=== PATIENT | male | born 1965 | race Caucasian/White ===

== ENCOUNTER 2016-04-12 06:58 | Outpatient (CLI) | payer MEDICAID ==
[~2016-04-12] VITALS: Ht 170.2 cm; Wt 66.7 kg
[2016-04-12] VITALS (15 sets, daily range): BP systolic 86–117; BP diastolic 48–80
[2016-04-12] MEDS ORDERED: QUET200T PO (07:19)
[2016-04-12] MEDS ORDERED: LOVA40TA2 PO (07:19)
[2016-04-12] MEDS ORDERED: FENO135C2 PO (07:19)
[2016-04-12] MEDS ORDERED: TAMS0.4C2 PO (07:19)
[2016-04-12] MEDS ORDERED: ONDA-36 PO (07:19)
[2016-04-12] MEDS ORDERED: DOCU-153 PO (07:19)
[2016-04-12] MEDS ORDERED: LEVO50TA5 PO (07:19)
[2016-04-12] MEDS ORDERED: RANI150C PO (07:19)
[2016-04-12] MEDS ORDERED: HYDR50CA2 PO (07:19)
[2016-04-12 07:22] LABS: BASO # 0.1 x10^3/uL (0.0-0.2); BASO % 1 % (0-3); EOS % 7 % (0-3); HEMATOCRIT 41.5 % (39.0-53.0); HEMOGLOBIN 13.4 g/dL (13.0-17.5); LYMPH # 1.8 x10^3/uL (1.0-4.8); LYMPH % 22 % (24-48); MEAN CORPUSCULAR HEMOGLOBIN 26 pg (25-35); MEAN CORPUSCULAR HGB CONC 32 g/dL (31-37); MEAN CORPUSCULAR VOLUME 82 fL (79-100); MONO % 14 % (0-9); NEUT % 57 % (31-73); PLATELET COUNT 284 x10^3/uL (140-400); RED BLOOD COUNT 5.09 x10^6/uL (4.30-5.70); RED CELL DISTRIBUTION WIDTH 15.4 % (11.5-14.5); WHITE BLOOD COUNT 8.3 x10^3/uL (4.0-11.0)
[2016-04-12 07:39] LABS: INR 1.2 (0.8-1.1); PROTHROMBIN TIME PATIENT 14.3 SEC (11.7-14.0)
[2016-04-12] MEDS ORDERED: OXYC20TA34 PO (07:43)
[2016-04-12] MEDS ORDERED: OXYC-250 PO (07:43)
[2016-04-12] MEDS ORDERED: ALBU2.5V13 NEB (07:43)
[2016-04-12] MEDS ORDERED: INSU100V8 SQ (07:43)
[2016-04-12] MEDS ORDERED: LIDOCAINE 1% / SOD BICARB 8.4% 20 ML VIAL. IJ ONE ×2 (08:11→08:45)
[2016-04-12] MEDS ORDERED: MIDAZOLAM HCL 2 MG/2 ML VIAL. ONE (08:21)
[2016-04-12] MEDS ORDERED: FENTANYL PF 100 MCG/2 ML VIAL. ONE (08:21)
[2016-04-12] MEDS ORDERED: FENTANYL PF 100 MCG/2 ML VIAL. IV ONE (08:45)
[2016-04-12] MEDS ORDERED: MIDAZOLAM HCL 2 MG/2 ML VIAL. IV ONE (08:45)
--- NOTE | 2016-04-12 09:13 | PDOC ---
MODERATE SEDATION ASSESSMENT RISKS/ALTERNATIVES Risks/Alternatives Risks and alternatives of this type of sedation and procedure discussed with: RISK/ALTERNATIVES: Patient H & P ON CHART H & P H & P on chart and reviewed for co-morbid conditions and appropriate labs. H&P ON CHART: Yes STATUS PREG STATUS ASSESSED: N/A MEDS/ALLERGIES REVIEWED Meds/Allergies Reviewed Medications and Allergies including time and route of recently administered narcotics and sedatives. MEDS/ALLERGIES REVIEWED: Yes ASA RATING ASA RATING: II AIRWAY ASSESSMENT Airway Assessment Airway patency, oral function limitations, presence of caps, crowns, dentures, partials, and ability to extend neck assessed. AIRWAY ASSESSMENT: Yes MALLAMPATI SCORE MALLAMPATI SCORE: II PRE-SEDATION ASSESSMENT PRE-SEDATION ASSESSMENT: Yes MONSTER ALEX MD Apr 12, 2016 09:13
--- NOTE | 2016-04-12 09:14 | PDOC1 ---
History and Physical Date of Procedure Date of Admission 04/12/16 Procedure Procedure Image guided right thoracentesis Indication Indication 50 YO male with massive, symptomatic right thoracentesis Past Medical History Past Medical History See Nursing pre procedure PMH Past Surgical History Past Surgical History See Nursing Pre procedure PSH Current Medications Current Medications Current Medications Lidocaine/Sodium Bicarbonate (Buffered Lidocaine 1%) 20 ml STK-MED ONCE IJ ; Start 04/12/16 at 08:11; Stop 04/12/16 at 08:12; Status DC Midazolam HCl (Versed) 2 mg STK-MED ONCE .ROUTE ; Start 04/12/16 at 08:21; Stop 04/12/16 at 08:22; Status DC Fentanyl Citrate (Fentanyl 2ml Vial) 100 mcg STK-MED ONCE .ROUTE ; Start at 08:21; Stop 04/12/16 at 08:22; Status DC Lidocaine/Sodium Bicarbonate (Buffered Lidocaine 1%) 20 ml 1X ONCE IJ Last administered on 04/12/16 08:48; Start 04/12/16 at 08:45; Stop 04/12/16 at 08:46 ; Status DC Midazolam HCl (Versed) 2 mg 1X ONCE IV Last administered on 04/12/16 08:49; Start 04/12/16 at 08:45; Stop 04/12/16 at 08:46; Status DC Fentanyl Citrate (Fentanyl 2ml Vial) 100 mcg 1X ONCE IV Last administered on 08:49; Start 04/12/16 at 08:45; Stop 04/12/16 at 08:46; Status DC Active Scripts Active Reported Albuterol Sulfate Conc Neb Soln (Albuterol Sulfate) 2.5 Mg/0.5 Ml Vial.neb 2.5 Mg NEB Lantus (Insulin Glargine,Hum.rec.anlog) 100 Unit/1 Ml Vial 45 Unit SQ HS Oxycontin (Oxycodone HCl) 20 Mg Tab.er.12h 20 Mg PO BID Percocet 10-325 Mg Tablet (Oxycodone/Acetaminophen) 1 Each Tablet 1 Tab PO PRN Q6HRS PRN Fenofibric Acid (Fenofibric Acid (Choline)) 135 Mg Capsule.dr 135 Mg PO DAILY Ranitidine Hcl 150 Mg Capsule 150 Mg PO BID Tamsulosin Hcl 0.4 Mg Cap.er.24h 0.4 Mg PO DAILY Lovastatin 40 Mg Tablet 40 Mg PO HS Levothyroxine Sodium 50 Mcg Tablet 50 Mcg PO DAILYAC Hydroxyzine Pamoate 50 Mg Capsule 50 Mg PO Q6HRS Ondansetron Hcl 8 Mg Tablet 8 Mg PO DAILY PRN Quetiapine Fumarate 200 Mg Tablet 200 Mg PO BID Dok (Docusate Sodium) 100 Mg Capsule 100 Mg PO DAILY Allergies Allergies: Coded Allergies: No Known Drug Allergies (Unverified , 04/12/16) Physical Exam Vital Signs Vital Signs Date Time Temp Pulse Resp B/P Pulse Ox O2 Delivery O2 Flow Rate FiO2 04/12/16 08:59 87 12 97 Nasal Cannula 2.0 04/12/16 07:39 98.3 117/71 98.3 Lungs: Other (diminished right breath sounds) Heart: Regular rate Psych/Mental Status: Mental status NL Assessment Assessment Large, symptomatic right pleural effusion Problems: Plan Plan Image guided Dx/Tx thoracentesis, as requested by Pulmonary MONSTER ALEX MD Apr 12, 2016 09:14
--- NOTE | 2016-04-12 09:24 | PDOC ---
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 No apparent complication. No immediate Ptx. Disposition Disposition Discharge from [facility] post recovery, if no Ptx or other problem. 90 minute post thora insp/exp CXR requested. F/u with referring MD. Full report to follow. MONSTER ALEX MD Apr 12, 2016 09:24
--- NOTE | 2016-04-12 11:01 | RAD ---
Exam performed: Single view chest in inspiration and expiration Date of service: 04/12/16. Comparison: None available Indication: 1.5 hours post thoracentesis Findings: Small residual right pleural effusion is seen post thoracentesis. Right Basilar atelectasis noted. No pneumothorax is identified. The left lung is clear. Impression: No definite pneumothorax post thoracentesis.
[2016-04-12 11:39] LABS: BF COLOR RED
[2016-04-12 11:40] LABS: BF CLARITY CLOUDY
--- NOTE | 2016-04-13 06:30 | RAD ---
CT-guided diagnostic and therapeutic right thoracentesis Indication: 50-year-old male with chronic pancreatitis. Very large right pleural effusion, with chest pain and shortness of air. Image guided thoracentesis has been requested by pulmonary. Anesthesia: 22 minutes moderate sedation was provided utilizing a total of 1 mg Versed and 50 mcg fentanyl, IV. The patient was appropriately monitored by a qualified independent observer throughout the time of moderate sedation. Procedure: Informed consent was obtained from the patient. He was placed supine on the CT scanner. Preliminary noncontrast CT images confirmed the presence of a large right pleural effusion, with associated right lower lung compression atelectasis/consolidation. A skin site suitable for CT-guided thoracentesis was selected and marked along the lateral aspect of lower right hemithorax. That area was prepped and draped in the usual sterile fashion. Using aseptic technique, local anesthesia, and CT guidance, a micropuncture sheath was successfully introduced into the low right lateral pleural space. This sheath was then exchanged over a guidewire for a 6 Welsh drainage catheter. Approximately 2700 cc of reddish-turbid pleural fluid was then easily removed, samples which were submitted to the clinical laboratory per referring flooring mechanic request. Completion CT images documented marked reduction in volume of the right pleural effusion, without pneumothorax, but with persistent atelectasis/infiltrate within right lower and middle lobes.. The drainage catheter was removed and a sterile dressing was applied. Patient tolerated the procedure well without apparent complication. Impression: Successful, uneventful CT-guided diagnostic and therapeutic right thoracentesis, as described. PQRS compliance statement: One or more of the following individualized dose reduction techniques was utilized for this CT procedure: 1. Automated exposure control. 2. Adjustment of MA and/or KV according to patient size. 3. Iterative reconstruction technique.
--- NOTE | 2016-04-13 13:46 | PATHOLOGY ---
CYTOPATHOLOGY REPORT CLINICAL HISTORY: Right pleural effusion. SPECIMEN(S) RECEIVED: A.Pleural fluid, Right FINAL DIAGNOSIS: Right pleural fluid, ThinPrep and cell block: - No malignant cells identified. - Focally reactive mesothelial cells and few inflammatory cells identified. (JPM:; d/t: 04/13/16) PATHOLOGIST: Vinod Infante M.D. REPORT ELECTRONICALLY SIGNED BY: Vinod Infante M.D. DATE/TIME: 04/13/2016 13:45 GROSS PATHOLOGY: A. Pleural fluid, Right: The specimen is submitted unfixed, labeled "Dre Gamez". Received by the Cytology Department is 30 mL of cloudy red fluid. One ThinPrep slide and a cell block were prepared. (clt 04.12.2016) [place] MIXER OPERATOR(S): QUYHN Weber(ASCP) INITIAL CPT CODE(S): A; 97348, 84145 Professional services performed by [facility] [place] [address] Technical services performed by [facility] at [address] [place] [address], [address] [address]. PATIENT: DRE GAMEZ /AGE: 912/08/1965 (Age: 50) SEX: M PATIENT #: [id number] ALT CASE #: SPECIMEN COLLECTION DATE: 04/12/2016 SPECIMEN RECEIVED DATE: 04/12/[address] [facility] [address] [place] [address], [address] [place] [address] PHONE: [phone] DIRECTOR: Steve Esquivel M.D. * * * END OF REPORT * * *
== END 2016-04-12 12:01 | disposition home or self-care (01) ==
LOC: INTRAD 06:58
PROVIDERS: ATTEND Internal Medicine Pulmonary Disease
DX: J90 Pleural effusion, not elsewhere classified (principal); J44.9 Chronic obstructive pulmonary disease, unspecified; J45.909 Unspecified asthma, uncomplicated; E11.9 Type 2 diabetes mellitus without complications; F41.9 Anxiety disorder, unspecified; Z72.89 Other problems related to lifestyle
CPT/HCPCS: 32555; 36415; 71035; 85027; 85610; 87116; 87205; 89050; A4215; C1729; C1892; C1894; J2250; J3010; 82150; 82945; 83615; 84157; 87071; 87075; 88112; 88305